=== PATIENT | female | born 1985 | race Caucasian/White ===

== ENCOUNTER 2019-01-21 22:30 | Emergency (ER) | payer SELFPAY ==
[~2019-01-21] VITALS: Ht 162.6 cm; Wt 78.0 kg
[2019-01-21 23:36] VITALS: BP 117/62
[2019-01-21 23:57] LABS: BASOPHILS % 0.9 % (0.0-2.0); EOSINOPHILS % 1.2 % (0.0-5.0); HEMATOCRIT. 41.3 % (36.0-48.0); HEMOGLOBIN. 13.7 g/dL (12.0-16.0); LYMPHOCYTES % 16.7 % (20.0-50.0); MEAN CORPUSCULAR HEMOGLOBIN 30.3 pg (28.0-32.0); MEAN CORPUSCULAR VOLUME 91.1 fL (81.0-99.0); MONOCYTES % 4.6 % (2.0-8.0); NEUTROPHILS % 76.6 % (40.0-76.0); PLATELET 397 x1000/uL (130-400); RED BLOOD CELL COUNT 4.54 mill/uL (4.2-5.4); RED CELL DISTRIBUTION WIDTH 13.6 % (11.6-14.6)
[2019-01-22 00:15] LABS: CHLORIDE 106 mEq/L (98-107)
[2019-01-22 01:05] LABS: ETHANOL BLOOD 330 mg/dL
== END 2019-01-21 23:59 | disposition home or self-care (01) ==
LOC: ER 22:30
DX: F10.129 Alcohol abuse with intoxication, unspecified (principal); Y90.8 Blood alcohol level of 240 mg/100 ml or more
CPT/HCPCS: 36415; 80307; 80320; 80329; 82962; 99283; G0480